=== PATIENT | female | born 1970 | race Two or more races ===

== ENCOUNTER 2023-05-30 11:16 | Emergency (ER) | payer MEDICAID, OTHER ==
[~2023-05-30] VITALS: Ht 162.6 cm; Wt 79.4 kg
[2023-05-30] MEDS ORDERED: LIDOCAINE 1%-EPI 1:100,000 20 ML VIAL ONE (16:11)
[2023-05-30] MEDS ORDERED: ACETAMINOPHEN ES 500 MG TABLET ONE (16:13)
[2023-05-30] MEDS ORDERED: CEPH500C2 PO (16:13)
[2023-05-30] MEDS ORDERED: SULF1TAB48 PO (16:13)
[2023-05-30] MEDS ORDERED: IBUPROFEN 600 MG TABLET ONE (16:14)
[2023-05-30] MEDS: IBUPROFEN 600 MG TABLET PO ONE (16:17)
[2023-05-30] MEDS: ACETAMINOPHEN 325 MG TABLET PO ONE (16:18)
[2023-05-30 17:50] VITALS: BP 111/66; TEMP 98.1; O2SAT 98
== END 2023-05-30 16:00 | disposition home or self-care (01) ==
LOC: ER 11:16
DX: R10.2 Pelvic and perineal pain (principal)
CPT/HCPCS: J3490